=== PATIENT | male | born 1990 | race Caucasian/White ===

== ENCOUNTER 2019-06-01 21:20 | Emergency (ER) | payer SELFPAY ==
[~2019-06-01] VITALS: Ht 170.2 cm; Wt 104.3 kg
[2019-06-01 21:25] VITALS: BP 160/78
--- NOTE | 2019-06-01 21:25 | NUR ---
TO BED # 02 AMBULATORY
--- NOTE | 2019-06-01 21:39 | NUR ---
PA AT BEDSIDE TO EVAL PT.
[2019-06-01] MEDS ORDERED: KETOROLAC 30 MG/ML VIAL IM ONE (21:40)
--- NOTE | 2019-06-01 21:40 | NUR ---
28 Y/O MALE ARRIVED TO ED C/O LEFT TOOTHACHE X 3 DAYS. RATES PAIN 10/10 AND DESCRIBES IT STABBING FEELING. LEFT SIDE OF TOOTH SHOWS ITS CHIPPED. PT STATES HE ATE SOMETHING HARD AT WORK AND ENDED UP SHATTERING HIT TOOTH ON THE LEFT SIDE. VSS. NO SIGNS OF REDNESS OR DISCHARGE NOTED. NKA. DENIES ANY PMH.
[2019-06-01 21:55] VITALS: BP 160/78
--- NOTE | 2019-06-01 21:55 | NUR ---
Patient discharged with v/s stable. Written and verbal after care instructions given and explained. Patient alert, oriented and verbalized understanding of instructions. Ambulatory with steady gait. All questions addressed prior to discharge. ID band removed. Patient advised to follow up with PMD. Rx of NOORCO, IBUPROFEN, AND AMOXICILLIN given. Patient educated on indication of medication including possible reaction and side effects. Opportunity to ask questions provided and answered.
== END 2019-06-01 21:55 | disposition home or self-care (01) ==
LOC: MED 21:20
DX: K08.89 Other specified disorders of teeth and supporting structures (principal)
CPT/HCPCS: 96372; 99283; J1885